=== PATIENT | female | born 1965 | race Caucasian/White ===

== ENCOUNTER 2017-01-07 11:18 | Emergency (ER) | payer OTHER ==
[2017-01-07 12:30] LABS: Urine Bilirubin Negative (Negative); Urine Glucose Negative (Negative); Urine Nitrite Negative (Negative)
[2017-01-07 12:56] LABS: Benzodiazepine Urine Screen Presumptive Positive (None Detect)
[2017-01-07 12:58] LABS: Hematocrit 45 % (35-47); Hemoglobin 15.3 g/dl (12.0-16.0); Mean Corpuscular HGB Conc 34 g/dl (31-36); Mean Corpuscular Hemoglobin 30 pg (27-31); Mean Corpuscular Volume 90 fL (80-97); Mean Platelet Volume 9 um3 (7.4-10.4); Red Blood Count 5.07 10^6/ul (4.0-5.4); Red Cell Distribution Width 13 % (10.5-15)
[2017-01-07 13:12] LABS: ALT 93 U/L (7-52); AST 98 U/L (13-39); Albumin 4.9 g/dL (3.2-5.2); Alkaline Phosphatase 81 U/L (34-104); Anion Gap 9 mmol/L (2-11); BUN/Creatinine Ratio 26.2 (8-20); Blood Urea Nitrogen 17 mg/dL (6-24); CO2 Carbon Dioxide 25 mmol/L (22-32); Calcium 9.7 mg/dL (8.6-10.3); Chloride 103 mmol/L (101-111); EGFR African American 124.6 (>60); EGFR Non-African American 96.9 (>60); Globulin 2.7 g/dL (2-4); Glucose 98 mg/dL (70-100); Potassium 3.7 mmol/L (3.5-5.0); Sodium 137 mmol/L (133-145); Total Protein 7.6 g/dL (6.4-8.9)
[2017-01-07 13:49] LABS: Acetaminophen < 15 mcg/mL; Alcohol < 10 mg/dL (<10); Salicylate < 2.50 mg/dL (<30)
[2017-01-07 15:00] VITALS: BP 146/96
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
== END 2017-01-07 15:20 | disposition home or self-care (01) ==
LOC: ED 11:18
DX: F32.9 Major depressive disorder, single episode, unspecified (principal)
CPT/HCPCS: 36415; 80053; 80307; 80320; 80329; 81003; 84443; 85025; 99283; G0480

== ENCOUNTER 2018-05-04 09:25 | Emergency (ER) | payer OTHER ==
[2018-05-04 09:38] VITALS: BP 141/86
--- NOTE | 2018-05-04 10:22 | UC ---
Skin Complaint HPI - HPI Summary HPI Summary: 52 yo female presents with LEFT foot wound. She tells me that 2 weeks ago she had a cyst removed in the office of her PCP and stitches placed. She went back to have these removed 1 week ago and tells me that the RN in his office who took them out says that they "didn't look good". Since that time pt has been having opening of the wound and clear/yellow/brown drainage from this site. Yesterday developed some surrounding swelling and pain. She has been keeping the wound covered with a band-aid. Denies fever or chills. - History of Current Complaint Chief Complaint: UCLowerExtremity Time Seen by Provider: 05/04/18 10:21 Stated Complaint: L FOOT COMPLAINT Hx Obtained From: Patient Hx Last Menstrual Period: 2001 or Onset/Duration: Gradual Onset Onset Severity: Moderate Current Severity: Moderate Pain Intensity: 5 Pain Scale Used: 0-10 Numeric - Allergy/Home Medications Allergies/Adverse Reactions: Allergies Allergy/AdvReac Type Severity Reaction Status Date / Time diclofenac Allergy See Comment Verified 05/04/18 09:39 Home Medications: Home Medications Losartan/Hydrochlorothiazide [Losartan Potassium/Hydroc 100-25 mg] 1 tab PO 04/13 [History] amLODIPine TAB* [Norvasc 5 mg TAB*] 5 mg PO DAILY 05/04/18 [History Confirmed ] Review of Systems Constitutional: Negative Skin: Other - Wound left foot Respiratory: Negative Cardiovascular: Negative Neurovascular: Negative Musculoskeletal: Negative Neurological: Negative Psychological: Negative All Other Systems Reviewed And Are Negative: Yes PMH/Surg Hx/FS Hx/Imm Hx Endocrine History: Hypothyroidism Cardiovascular History: Hypertension GI/ History: Gastroesophageal Reflux Psychological History: Anxiety, Depression - Surgical History Surgical History: Yes Surgery Procedure, Year, and Place: Complete Hysterectomy 2001. thyroidectomy. bunion removal - Family History Known Family History: Positive: Hypertension, Diabetes Family History: FHx of [place] - Social History Occupation: Employed Full-time Lives: With Family Alcohol Use: Occasionally Alcohol Amount: twice a week Substance Use Type: None Smoking Status (MU): Heavy Every Day Tobacco Smoker Type: Cigarettes When Did the Patient Quit Smoking/Using Tobacco: 4 years - Immunization History Most Recent Influenza Vaccination: [id number] Most Recent Tetanus Shot: unknown Physical Exam - Summary Physical Exam Summary: GENERAL: NAD. WDWN. No pain distress. SKIN: Left foot: Dorsal-medial aspect of foot with 1.0cm surgical incision approx 3mm in depth. 2mm of width at rest with no active drainage/discharge. Mild TTP surrounding. No edema or erythema. No streaking, bleeding, or drainage. NECK: Supple. Nontender. No lymphadenopathy. CHEST: No accessory muscle use. Breathing comfortably and in no distress. CV: Pulses intact. Cap refill <2seconds NEURO: Alert. PSYCH: Age appropriate behavior. Triage Information Reviewed: Yes Vital Signs: Initial Vital Signs Temp 97.8 F 05/04/18 09:34 Pulse 96 05/04/18 09:34 Resp 18 05/04/18 09:34 BP 141/86 05/04/18 09:34 Pulse Ox 97 05/04/18 09:34 Vital Signs Reviewed: Yes Course/Dx - Course Course Of Treatment: Wound dehiscence left foot. Advised pt that this will require secondary wound closure with wound dressings over the next few weeks. Scant clear drainage was able to be expressed and a culture was obtained. Will place her on keflex to cover for an infectious process. Wound was bandaged with telfa. - Diagnoses Provider Diagnoses: Wound dehiscence left foot Discharge - Sign-Out/Discharge Documenting (check all that apply): Patient Departure All imaging exams completed and their final reports reviewed: No Studies - Discharge Plan Condition: Stable Disposition: HOME Prescriptions: Cephalexin CAP* [Keflex CAP*] 500 mg PO TID #21 cap Patient Education Materials: Wound Dehiscence (ED) Referrals: Richard Perez MD [Primary Care Provider] - Additional Instructions: If you develop a fever, shortness of breath, chest pain, new or worsening symptoms - please call your PCP or go to the ED. Your blood pressure was high at todays visit. Please see your primary provider within 4 weeks for recheck and re-evaluation. 1) Change the dressing on your foot daily until well healed - this will likely take 3-4 weeks to fully heal. If your wound does not improve - please follow up - Billing Disposition and Condition Condition: STABLE Disposition: Home
--- NOTE | 2018-05-06 19:54 | UC ---
- Progress Note Progress Note: normal elsa 1+ on cephalexin no change await sensitivity ljj 05/06/18 Discharge - Sign-Out/Discharge Documenting (check all that apply): Post-Discharge Follow Up All imaging exams completed and their final reports reviewed: No Studies - Discharge Plan Condition: Stable Disposition: HOME Prescriptions: Cephalexin CAP* [Keflex CAP*] 500 mg PO TID #21 cap Patient Education Materials: Wound Dehiscence (ED) Referrals: Richard Perez MD [Primary Care Provider] - Additional Instructions: If you develop a fever, shortness of breath, chest pain, new or worsening symptoms - please call your PCP or go to the ED. Your blood pressure was high at todays visit. Please see your primary provider within 4 weeks for recheck and re-evaluation. 1) Change the dressing on your foot daily until well healed - this will likely take 3-4 weeks to fully heal. If your wound does not improve - please follow up - Billing Disposition and Condition Condition: STABLE Disposition: Home
== END 2018-05-04 11:01 | disposition home or self-care (01) ==
LOC: UCEAST 09:25
DX: T81.30XA Disruption of wound, unspecified, initial encounter (principal); Z88.6 Allergy status to analgesic agent; I10 Essential (primary) hypertension; Z87.891 Personal history of nicotine dependence
CPT/HCPCS: 87070; 87205; 99212; G0463

== ENCOUNTER 2018-06-21 13:03 | Emergency (ER) | payer OTHER ==
--- NOTE | 2018-06-21 13:40 | UC ---
Respiratory Complaint HPI - HPI Summary HPI Summary: 52 yo female presents with cough, sneezing, and hoarse voice since yesterday. 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 She has not taken anything OTC for her symptoms. She is still smoking daily. She does feel short of breath intermittently. Denies fever, chills, sore throat, sinus symptoms, chest pain, abdominal pain, n/v. - History of Current Complaint Stated Complaint: SORE THROAT, SOB Time Seen by Provider: 06/21/18 13:40 Hx Obtained From: Patient Hx Last Menstrual Period: 2001 or Onset/Duration: Sudden Onset Severity Initially: Moderate Severity Currently: Moderate Pain Intensity: 8 Pain Scale Used: 0-10 Numeric Character: Cough: Nonproductive - Allergies/Home Medications Allergies/Adverse Reactions: Allergies Allergy/AdvReac Type Severity Reaction Status Date / Time codeine Allergy Intermediate jitters Verified 06/21/18 13:44 diclofenac Allergy See Comment Verified 06/21/18 13:44 Home Medications: Home Medications Atorvastatin* [Lipitor*] 20 mg PO 1700 06/21/18 [History Confirmed 06/21/18] Omeprazole CAP* [Prilosec CAP* 20 MG] 20 mg PO DAILY 06/21/18 [History Confirmed 06/21/18] Prochlorperazine TAB* [Compazine Tab*] 10 mg PO DAILY WITH MEAL 06/21/18 [ History Confirmed 06/21/18] SUMAtriptan succinate [Imitrex] 100 mg PO DAILY WITH MEAL 06/21/18 [History Confirmed 06/21/18] PMH/Surg Hx/FS Hx/Imm Hx Endocrine History: Hypothyroidism, Dyslipidemia Cardiovascular History: Hypertension GI/ History: Gastroesophageal Reflux Neurological History: Migraine - Surgical History Surgical History: Yes Surgery Procedure, Year, and Place: Complete Hysterectomy 2001. thyroidectomy. bunion removal - Family History Known Family History: Positive: Hypertension, Diabetes Family History: FHx of [place] - Social History Occupation: Employed Full-time Lives: With Family Alcohol Use: Occasionally Alcohol Amount: twice a week Substance Use Type: None Smoking Status (MU): Heavy Every Day Tobacco Smoker Type: Cigarettes When Did the Patient Quit Smoking/Using Tobacco: 4 years - Immunization History Most Recent Influenza Vaccination: [id number] Most Recent Tetanus Shot: unknown Review of Systems All Other Systems Reviewed And Are Negative: Yes Constitutional: Positive: Negative Skin: Positive: Negative Eyes: Positive: Negative ENT: Positive: Other - Hoarseness Respiratory: Positive: Cough Cardiovascular: Positive: Negative Gastrointestinal: Positive: Negative Genitourinary: Positive: Negative Neurovascular: Positive: Negative Neurological: Positive: Negative Psychological: Positive: Negative Physical Exam - Summary Physical Exam Summary: GENERAL: NAD. WDWN. No pain distress. SKIN: No rashes, sores, lesions, or open wounds. HEENT: Head: AT/NC Eyes: Conjunctiva clear without inflammation or discharge. Ears: Hearing grossly normal. TMs intact, no bulging, erythema, or edema. Nose: Nasal mucosa pink and moist. NTTP maxillary and frontal sinus. Throat: Posterior oropharynx without exudates, erythema, or tonsillar enlargement. Uvula midline. NECK: Supple. Nontender. No lymphadenopathy. CHEST: Mild wheezing throughout. No r/r. No accessory muscle use. Breathing comfortably and in no distress. CV: RRR. Without m/r/g. Pulses intact. Cap refill <2seconds NEURO: Alert. PSYCH: Age appropriate behavior. Triage Information Reviewed: Yes Vital Signs: Vital Signs: Temp Pulse Resp BP Pulse Ox 97.7 F 96 18 142/97 97 06/21/18 13:40 06/21/18 13:40 06/21/18 13:40 06/21/18 13:40 06/21/18 13:40 Vital Signs Reviewed: Yes Respiratory Course/Dx - Course Course Of Treatment: CXR: IMPRESSION: NO EVIDENCE FOR ACTIVE CARDIOPULMONARY DISEASE. S/P duoneb: pt reports improvement and easier to get a good breath. Lung sounds improved with scant wheezing heard. Suspect bronchitis. She was given an albuterol inhaler in the clinic and will rx for prednisone and tessalon. Advised to cut back smoking. - Differential Dx/Diagnosis Provider Diagnosis: Bronchitis Discharge - Sign-Out/Discharge Documenting (check all that apply): Patient Departure All imaging exams completed and their final reports reviewed: Yes - Discharge Plan Condition: Stable Disposition: HOME Prescriptions: Benzonatate CAP* [Tessalon 100 MG CAP*] 100 mg PO TID PRN #21 cap PRN Reason: Cough predniSONE TAB* [Deltasone 20 MG TAB*] 60 mg PO DAILY #18 tab Patient Education Materials: Acute Bronchitis (ED) Referrals: Richard Perez MD [Primary Care Provider] - Additional Instructions: If you develop a fever, shortness of breath, chest pain, new or worsening symptoms - please call your PCP or go to the ED. Your blood pressure was high at todays visit. Please see your primary provider within 4 weeks for recheck and re-evaluation. - Billing Disposition and Condition Condition: STABLE Disposition: Home
[2018-06-21 13:44] VITALS: BP 142/97
[2018-06-21] MEDS ORDERED: Albuterol/Ipratropium NEB.SOL* Albuterol 2.5 MG/Ipratropium 0.5 MG 3 ML INH ONE (14:01)
[2018-06-21] MEDS ORDERED: Albuterol HFA INHALER* 8 gm MDI INH ONE (14:36)
== END 2018-06-21 14:50 | disposition home or self-care (01) ==
LOC: UCEAST 13:03
DX: J40 Bronchitis, not specified as acute or chronic (principal); Z88.5 Allergy status to narcotic agent; Z88.6 Allergy status to analgesic agent
CPT/HCPCS: 71046; 99213; A9270-GY; G0463

== ENCOUNTER 2018-11-13 13:15 | Emergency (ER) | payer SELFPAY ==
[2018-11-13 13:24] VITALS: BP 128/93
--- NOTE | 2018-11-13 13:30 | UC ---
General HPI - HPI Summary HPI Summary: Pleasant 52 yo female c/o progressively worse cough, wheezing, short of breath last 5 days. Seen by PCP at [place] on (today is Sat), influenza test performed and started tamiflu. She later was advised that infl a/b neg, has taken 3 days tamiflu. Does not have nebulizer at home. Very tired. + subj fever and chills. Appetite decreased, but without n/v/d. no rash. + smoker but has not been able to smoke d/t cough / sob. Recently dx'd diabetes, does not take medication / insulin. No vis / aud changes. + ear fullness. - History of Current Complaint Chief Complaint: UCRespiratory Stated Complaint: FLU SYMPTOMS Time Seen by Provider: 11/13/18 13:28 Hx Obtained From: Patient Hx Last Menstrual Period: 2001 or Pain Intensity: 6 - Allergy/Home Medications Allergies/Adverse Reactions: Allergies Allergy/AdvReac Type Severity Reaction Status Date / Time codeine Allergy Intermediate jitters Verified 11/13/18 13:24 diclofenac Allergy See Comment Verified 11/13/18 13:24 PMH/Surg Hx/FS Hx/Imm Hx Previously Healthy: No - see below - Surgical History Surgical History: Yes Surgery Procedure, Year, and Place: Complete Hysterectomy 2001. thyroidectomy. bunion removal - Family History Known Family History: Positive: None, Hypertension, Diabetes Family History: FHx of [place] - Social History Alcohol Use: Occasionally Alcohol Amount: twice a week Substance Use Type: None Smoking Status (MU): Heavy Every Day Tobacco Smoker Type: Cigarettes When Did the Patient Quit Smoking/Using Tobacco: 4 years - Immunization History Most Recent Influenza Vaccination: 8618-6190 Most Recent Tetanus Shot: unknown Review of Systems All Other Systems Reviewed And Are Negative: Yes Constitutional: Positive: Other - see hpi Skin: Positive: Other - see hpi Eyes: Positive: Negative ENT: Positive: Nasal Discharge, Sinus Congestion, Other - see hpi Respiratory: Positive: Cough, Other - see hpi Cardiovascular: Positive: Other - see hpi Gastrointestinal: Positive: Other - see hpi Genitourinary: Positive: Other - see hpi Motor: Positive: Other - see hpi Neurovascular: Positive: Other - see hpi Musculoskeletal: Positive: Other: - see hpi Neurological: Positive: Negative Psychological: Positive: Negative Is Patient Immunocompromised?: No Physical Exam Triage Information Reviewed: Yes Appearance: Well-Nourished - sitting up, conversing Vital Signs: Initial Vital Signs Temp 98.6 F 11/13/18 13:20 Pulse 92 11/13/18 13:20 Resp 18 11/13/18 13:20 BP 128/93 11/13/18 13:20 Pulse Ox 97 11/13/18 13:20 Vital Signs Reviewed: Yes Eye Exam: Normal - eyes watery, not red ENT: Positive: Pharyngeal erythema - post pharynx + red, no sores / exudates. C /w cough. trachea midline. no stridor., Other - cerumen impaction L ear. R tm pacheco, eac [place] Neck exam: Normal Neck: Positive: Supple Respiratory Exam: Other - bilat rhonchi scattered + scattered insp / exp wheeze no stridor Respiratory: Positive: No respiratory distress, No accessory muscle use Cardiovascular Exam: Normal Cardiovascular: Positive: RRR, Brisk Capillary Refill Abdominal Exam: Normal Abdomen Description: Positive: Nontender Musculoskeletal Exam: Other - mild bilat hemosiderosis, mild edema, distal warm to touch. Neurological Exam: Normal - grossly nonfocal Psychological Exam: Normal - conversing easily and appropriately Course/Dx - Course Course Of Treatment: Blood glucose 110mg / dl. Aware to check blood glucose while taking prednisone. Reviewed bp, and need for recheck within 4 weeks. better s/p neb. she does not have access to a nebulizer but will ask her doctor for a script or look for one. Reviewed cxr with pt. Reviewed coa / tx plan. And need for f/u if worse or no better. Questions as posed answered to the best of my ability. - Diagnoses Provider Diagnosis: Bronchitis, Wheezing Discharge - Sign-Out/Discharge Documenting (check all that apply): Patient Departure All imaging exams completed and their final reports reviewed: Yes - Discharge Plan Condition: Critical Disposition: HOME Prescriptions: Albuterol 2.5MG/3ML (0.083%)* [Ventolin 2.5 MG/3 ML NEB.ANIKA*] 2.5 mg INH Q6H # 25 packet Albuterol HFA INHALER* [Ventolin HFA Inhaler*] 1 - 2 puff INH Q4H PRN #1 mdi PRN Reason: Wheezing Amoxicillin/Clavulanate TAB* [Augmentin TAB 875*] 875 mg PO BID #20 tab Benzonatate CAP* [Tessalon 100 MG CAP*] 100 mg PO TID PRN #30 cap PRN Reason: Cough predniSONE TAB* [Deltasone 10 MG TAB*] 10 mg PO DAILY #20 tab Patient Education Materials: Cerumen Impaction (ED), Acute Bronchitis (ED), COPD (Chronic Obstructive Pulmonary Disease) (ED), Bronchospasm (ED) Forms: *Work Release Referrals: Richard Perez MD [Primary Care Provider] - Additional Instructions: Follow up with your primary care physician early this week for respiratory recheck. Seek medical attention for worse or new problems. - Billing Disposition and Condition Condition: CRITICAL Disposition: Home
[2018-11-13] MEDS ORDERED: predniSONE TAB* 20 MG PO ONE (13:46)
[2018-11-13] MEDS ORDERED: Albuterol/Ipratropium NEB.SOL* Albuterol 2.5 MG/Ipratropium 0.5 MG 3 ML INH ONE (13:46)
== END 2018-11-13 15:25 | disposition home or self-care (01) ==
LOC: UCEAST 13:15
DX: J40 Bronchitis, not specified as acute or chronic (principal); R06.2 Wheezing; H61.22 Impacted cerumen, left ear; E11.9 Type 2 diabetes mellitus without complications; Z88.5 Allergy status to narcotic agent; Z88.8 Allergy status to other drugs, medicaments and biological substances; F17.210 Nicotine dependence, cigarettes, uncomplicated
CPT/HCPCS: 71046; 99213; A9270-GY; G0463; J7512

== ENCOUNTER 2019-02-25 12:47 | Emergency (ER) | payer OTHER ==
[2019-02-25 13:05] VITALS: BP 171/85
--- NOTE | 2019-02-25 13:20 | UC ---
Skin Complaint HPI - HPI Summary HPI Summary: She noticed an area of redness and mild pain 3 days ago on her left hip. Today it is more painful. She is diabetic and has a wound on her toe that's been healing for a long time. - History of Current Complaint Chief Complaint: UCSkin Time Seen by Provider: 02/25/19 13:02 Stated Complaint: SKIN CONCERN Hx Obtained From: Patient Hx Last Menstrual Period: 2001 or Onset/Duration: Gradual Onset, Lasting Days Skin Exposure Onset/Duration: Days Ago Timing: Constant Onset Severity: Mild Current Severity: Moderate Pain Intensity: 5 Location: Discrete - Left hip Aggravating Factor(s): Clothing Alleviating Factor(s): Nothing Associated Signs & Symptoms: Positive: Negative - Allergy/Home Medications Allergies/Adverse Reactions: Allergies Allergy/AdvReac Type Severity Reaction Status Date / Time diclofenac Allergy See Comment Verified 11/13/18 13:24 codeine AdvReac Intermediate jitters Verified 02/25/19 13:06 Home Medications: Home Medications Ascorbic Acid TAB* [Vitamin C TAB*] 500 mg PO DAILY 02/25/19 [History Confirmed 02/25/19] L.acidoph,Paracasei, B.lactis [Probiotic] 1 each PO DAILY 02/25/19 [History Confirmed 02/25/19] Multivitamin [Multivitamins] 1 cap PO DAILY 02/25/19 [History Confirmed 02/25/19 ] Pioglitazon/Metform 15/500(NF) [ActosPlus Met (15/500)] 1 tab PO DAILY 02/25/19 [History Confirmed 02/25/19] PMH/Surg Hx/FS Hx/Imm Hx Endocrine History: Diabetes Cardiovascular History: Hypertension - Surgical History Surgical History: Yes Surgery Procedure, Year, and Place: Complete Hysterectomy 2001. thyroidectomy. bunion removal - Family History Known Family History: Positive: None, Hypertension, Diabetes Family History: FHx of [place] - Social History Alcohol Use: Weekly Alcohol Amount: twice a week Substance Use Type: None Smoking Status (MU): Heavy Every Day Tobacco Smoker Type: Cigarettes Amount Used/How Often: 1 ppd Length of Time of Smoking/Using Tobacco: since age 20 When Did the Patient Quit Smoking/Using Tobacco: 4 years - Immunization History Most Recent Influenza Vaccination: 9822-5583 Most Recent Tetanus Shot: unknown Review of Systems All Other Systems Reviewed And Are Negative: Yes Constitutional: Positive: Negative Skin: Positive: Rash ENT: Positive: Negative Respiratory: Positive: Negative Motor: Positive: Negative Neurovascular: Positive: Negative Musculoskeletal: Positive: Negative Neurological: Positive: Negative Physical Exam - Summary Physical Exam Summary: She is nontoxic in appearance with borderline tachycardia. Triage Information Reviewed: Yes Appearance: Well-Appearing Vital Signs: Initial Vital Signs Temp 99.2 F 02/25/19 12:59 Pulse 107 02/25/19 12:59 Resp 17 02/25/19 12:59 BP 171/85 02/25/19 12:59 Pulse Ox 98 02/25/19 12:59 Vital Signs Reviewed: Yes ENT: Positive: Normal ENT inspection Respiratory Exam: Normal Cardiovascular Exam: Normal Skin Exam: Other - She has an approximately 12 x 6 cm area on her left hip which is erythematous and mildly tender. There is a hint of central clearing. Course/Dx - Course Course Of Treatment: This may merely be a cellulitis but I do have a concern for Lyme. She sleeps with her dogs but has not noticed a tick. The dogs are treated for ticks. I'm going to treat her with doxycycline which should cover either problem and go 21 days because it's possible that this is live and also she has slow healing issues because of her diabetes. - Diagnoses Provider Diagnosis: Cellulitis Discharge - Sign-Out/Discharge Documenting (check all that apply): Patient Departure All imaging exams completed and their final reports reviewed: No Studies - Discharge Plan Condition: Stable Disposition: HOME Patient Education Materials: Cellulitis (ED) Referrals: Richard Perez MD [Primary Care Provider] - Additional Instructions: Your blood pressure was mildly elevated here in the [facility]. I recommended you follow-up with your PCP for further evaluation. - Billing Disposition and Condition Condition: STABLE Disposition: Home
== END 2019-02-25 13:35 | disposition home or self-care (01) ==
LOC: UCCORT 12:47
DX: L03.116 Cellulitis of left lower limb (principal); E11.9 Type 2 diabetes mellitus without complications; Z79.84 Long term (current) use of oral hypoglycemic drugs; I10 Essential (primary) hypertension; F17.210 Nicotine dependence, cigarettes, uncomplicated
CPT/HCPCS: 99212; G0463

== ENCOUNTER 2019-02-26 12:09 | Emergency (ER) | payer OTHER ==
[2019-02-26 12:27] VITALS: BP 141/84
--- NOTE | 2019-02-26 13:19 | UC ---
FLU HPI - HPI Summary HPI Summary: 53 year old female with h/o DM II present with rash on Left hip. Was seen at [place] yesterday, treated with doxycycline for possible cellulitis/ lyme disease. Patient states increased in rash with fever to AM to 101. Headache- mild, diffuse. No GI symptoms. pain in hip increased- now feels deep inside hip joint. Increased pain with touch. - History of Current Complaint Chief Complaint: UCLowerExtremity Stated Complaint: LT HIP PAIN/REDNESS Time Seen by Provider: 02/26/19 12:57 Hx Obtained From: Patient Hx Last Menstrual Period: 2001 or ?: No Onset/Duration: Sudden Onset, Lasting Days Severity Currently: Mild Severity Initially: Severe Pain Intensity: 8 Pain Scale Used: 0-10 Numeric Associated Signs & Symptoms: Positive: Fever - 101, T Max - 101, Myalgia, Headache. Negative: Sore Throat, Nasal Congestion - Allergy/Home Medications Allergies/Adverse Reactions: Allergies Allergy/AdvReac Type Severity Reaction Status Date / Time diclofenac Allergy See Comment Verified 11/13/18 13:24 codeine AdvReac Intermediate jitters Verified 02/25/19 13:06 PMH/Surg Hx/FS Hx/Imm Hx Previously Healthy: Yes Endocrine History: Diabetes - Surgical History Surgical History: Yes Surgery Procedure, Year, and Place: Complete Hysterectomy 2001. thyroidectomy. bunion removal bladder susupenion - Family History Known Family History: Positive: None, Hypertension, Diabetes, Non-Contributory Family History: FHx of [place] - Social History Alcohol Use: Weekly Alcohol Amount: twice a week Substance Use Type: None Smoking Status (MU): Heavy Every Day Tobacco Smoker Type: Cigarettes Amount Used/How Often: 1 ppd Length of Time of Smoking/Using Tobacco: since age 20 When Did the Patient Quit Smoking/Using Tobacco: 4 years - Immunization History Most Recent Influenza Vaccination: [id number] Most Recent Tetanus Shot: unknown Review of Systems All Other Systems Reviewed And Are Negative: Yes Constitutional: Positive: Fever, Chills, Fatigue Skin: Positive: Rash Musculoskeletal: Positive: Arthralgia, Decreased ROM, Myalgia Is Patient Immunocompromised?: No Physical Exam Triage Information Reviewed: Yes Appearance: Well-Appearing, No Pain Distress, Well-Nourished Vital Signs: Initial Vital Signs Temp 98.8 F 02/26/19 12:19 Pulse 107 02/26/19 12:19 Resp 20 02/26/19 12:19 BP 141/84 02/26/19 12:19 Pulse Ox 98 02/26/19 12:19 Vital Signs Reviewed: Yes Eyes: Positive: Conjunctiva Clear ENT: Positive: Hearing grossly normal Musculoskeletal: Positive: Strength Intact, ROM Intact - TTP with hip flexion greater than 90 degrees, ROM 0-110., Other: - no pain with log roll, PT 2+, neg homans, TTP over inguinal region left side, + LAD, mobile, tender, ~ 1cm. no pain with abd/ add. Neurological: Positive: Other: - SITLT distal to Left hip Psychological Exam: Normal Skin: Positive: Other - over lateral left hip, increased erythema from pictures shown from yesterday, TTP , blanching, no drainage/ opening noted. no central clearing, not raised. Flu Course/Dx - Course Course Of Treatment: Possible septic joint- patient was advised to go to ER due to increasing symptoms, hip pain for further evaluation. - Differential Dx/Diagnosis Provider Diagnosis: Cellulitis Discharge - Sign-Out/Discharge Documenting (check all that apply): Patient Departure All imaging exams completed and their final reports reviewed: No Studies - Discharge Plan Condition: Good Disposition: HOME-RECOMMEND TO ED Patient Education Materials: Cellulitis (ED) Referrals: Richard Perez MD [Primary Care Provider] - Additional Instructions: - Please go to ER for further evaluation due to increasing symptoms and hip pain - Billing Disposition and Condition Condition: GOOD Disposition: Home-Recommend to ED - Attestation Statements Provider Attestation: Per institutional requirements, I have reviewed the chart, however, I was not consulted specifically or made aware of this patient by the midlevel provider. I did not personally evaluate, interact with , or disposition this patient.
== END 2019-02-26 13:28 | disposition home health service (06) ==
LOC: UCEAST 12:09
DX: L03.116 Cellulitis of left lower limb (principal); E11.9 Type 2 diabetes mellitus without complications; F17.210 Nicotine dependence, cigarettes, uncomplicated; Z88.5 Allergy status to narcotic agent
CPT/HCPCS: 99212; G0463

== ENCOUNTER 2019-05-30 07:14 | Emergency (ER) | payer OTHER ==
--- OUTSIDE RECORDS SUMMARY | 2019-05-30 07:25 | XMS REPORT | Continuity of Care Document ---
:1965 External Reference #:[id number] Author Name Vikas Benoit M.D. 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 Onset: 02/07/2015 Social History Type Date Description Comments Sex Unknown Tobacco Use Start: Unknown Light tobacco smoker (10 or fewer cigarettes/day) ETOH Use Occasionally consumes 2 glasses of wine alcohol per week Tobacco Use Start: Unknown Patient is a current smoker, smokes every day Recreational Drug Use Denies Drug Use Tobacco Use Start: Unknown Light tobacco smoker (10 or fewer cigarettes/day) Smoking Status Reviewed: 04/11/19 Light tobacco smoker (10 or fewer cigarettes/day) Exercise Type/Frequency Exercises regularly walk daily Allergies, Adverse Reactions, Alerts Active Allergies Reaction Severity Comments Date Codeine high doses, hyper/jittery 02/07/2015 Diclofenac indigestion 08/31/2018 Benadryl hallucination 04/11/2019 Medications Active Medications SIG Qnty Indications Ordering Provider Date Pioglitazone HCL take 15mg once 90tabs E11.65 Patric Akers MD 08/31/2018 15mg daily Tablets Levothyroxine Sodium 1 by mouth Unknown 88mcg every day Tablets Omeprazole 1 by mouth once Unknown 40mg Capsules DR daily Amlodipine Besylate 1 by mouth Unknown 5mg every day Tablets Atorvastatin Calcium 1 by mouth Unknown 20mg every day Tablets Losartan 1 by mouth Unknown Potassium/Hydrochloroth every day iazide 100-25mg Tablets Multi-Vitamin Daily 1 by mouth Unknown every day Tablets Probiotic 1 by mouth Unknown Capsules every day Venlafaxine HCL ER 1 by mouth Unknown 150mg every day Caps ER 24HR Vitamin C 1 by mouth Unknown 500mg Tablets every day Medications Administered in Office Medication SIG Qnty Indications Ordering Provider Date Injection Onabotulinumtoxin A, 1 Phylicia Coelho NP 05/07/2015 Unit Injection Immunizations Description No Information Available Vital Signs Date Vital Result Comment 04/11/2019 2:37pm Height 63 inches 5'3" Weight 164.00 lb Heart Rate 84 /min BP Systolic Sitting 120 mmHg BP Diastolic Sitting 82 mmHg Respiratory Rate 14 /min Body Temperature 97.0 F BMI (Body Mass Index) 29.0 kg/m2 11/30/2018 8:37am Height 63 inches 5'3" Weight 176.00 lb Heart Rate 94 /min BP Systolic 117 mmHg BP Diastolic 85 mmHg BMI (Body Mass Index) 31.2 kg/m2 Results Test Date Facility Test Result H/L Range Note Laboratory test 11/30/2018 [facility] TSH 0.23 mcIU/mL Low 0.34-5.[address] ([place] [address] Stim Horm) [phone] Free T4 (Free Thyroxine) 1.05 ng/dL Normal 0.61-1.12 Comp Metabolic 11/30/2018 [facility] Sodium 141 mmol/L Normal 135-[address] [place] [address] [phone] Potassium 4.0 mmol/L Normal 3.5-5.0 Chloride 106 mmol/L Normal 101-111 Co2 Carbon Dioxide 26 mmol/L Normal 22-32 Anion Gap 9 mmol/L Normal 2-11 Glucose 121 mg/dL High 70-100 Blood Urea Nitrogen 12 mg/dL Normal 6-24 Creatinine 0.60 mg/dL Normal 0.51-0.95 BUN/Creatinine Ratio 20.0 Normal 8-20 Calcium 9.4 mg/dL Normal 8.6-10.3 Total Protein 7.1 g/dL Normal 6.4-8.9 Albumin 4.8 g/dL Normal 3.2-5.2 Globulin 2.3 g/dL Normal 2-4 Albumin/Globulin Ratio 2.1 Normal 1-3 Total Bilirubin 0.50 mg/dL Normal 0.2-1.0 Alkaline Phosphatase 71 U/L Normal 34-104 Alt 35 U/L Normal 7-52 Ast 23 U/L Normal 13-39 Egfr Non- 105.4 >60 Egfr 127.5 >60 1 Laboratory test 11/30/2018 [facility] Lipase 14 U/L Normal 11.0-82.[address] [place] [address] [phone] Hemoglobin A1c (Glyco HGB) 6.5 % High 4.0-5.6 2 Insulin Level 19.8 mcIU/mL High 2.0-16.0 1 Because ethnic data is not always readily available, this report includes an eGFR for both -Americans and non- Americans. The National Kidney Disease Education Program (NKDEP) does not endorse the use of the MDRD equation for patients that are not between the ages of 18 and 70, are , have extremes of body size, muscle mass, or nutritional status, or are non- or non-. According to the National Kidney Foundation, irrespective of diagnosis, the stage of the disease is based on the level of kidney function: Stage Description GFR(mL/min/1.73 m(2)) 1 Kidney damage with normal or decreased GFR 90 2 Kidney damage with mild decrease in GFR 60-89 3 Moderate decrease in GFR 30-59 4 Severe decrease in GFR 15-29 5 Kidney failure <15 (or dialysis) 2 Therapeutic target for the treatment of diabetes mellitus patients is <7% HBA1C, and in selective patients <6.0%. Please refer to [place] [employer] diabetic care guidelines for further information. Procedures Description No Information Available Medical Devices Description No Information Available Encounters Type Date Location Provider Dx Diagnosis Office Visit 11/30/2018 [facility] Patric Akers MD Z79.84 long term (current) 8:40a [facility] use of oral hypoglycemic drugs E11.65 Type 2 diabetes mellitus with hyperglycemia E88.81 Metabolic syndrome E78.5 Hyperlipidemia, unspecified E89.0 Postprocedural hypothyroidism Assessments Date Code Description Provider 11/30/2018 Z79.84 long term (current) use of oral hypoglycemic drugs Patric Akers MD 11/30/2018 E11.65 Type 2 diabetes mellitus with hyperglycemia Patric Akers MD 11/30/2018 E88.81 Metabolic syndrome Patric Akers MD 11/30/2018 E78.5 Hyperlipidemia, unspecified Patric Akers MD 11/30/2018 E89.0 Postprocedural hypothyroidism Patric Akers MD Plan of Treatment Future Appointment(s):05/31/2019 8:40 am - Patric Akers MD at [facility] Functional Status Description No Information Available Mental Status Description No Information Available Referrals Description No Information Available
--- OUTSIDE RECORDS SUMMARY | 2019-05-30 07:25 | XMS REPORT | Continuity of Care Document ---
:1965 External Reference #:[id number] Author Name Mehreen Anderson MD (transmitted by agent of provider Mary Nolan) Address [address] [place] [address] Care Team Providers Name Role Phone Mehreen Anderson MD - Internal Medicine Care Team Information Systems Accountant [phone] Problems Active Problems Provider Date Migraine without aura Clem Chauhan M.D. Onset: 02/07/2015 Type II diabetes mellitus uncontrolled Mehreen Anderson MD Onset: 05/19/2019 Hyperlipidemia Mehreen Anderson MD Onset: 05/19/2019 Lipodystrophy Mehreen Anderson MD Onset: 05/19/2019 Essential hypertension Mehreen Anderson MD Onset: 05/19/2019 Social History Type Date Description Comments Sex Unknown Tobacco Use Start: Unknown Light tobacco smoker (10 or fewer cigarettes/day) ETOH Use Occasionally consumes 2 glasses of wine alcohol per week Tobacco Use Start: Unknown Patient is a current smoker, smokes every day Recreational Drug Use Denies Drug Use Tobacco Use Start: Unknown Light tobacco smoker (10 or fewer cigarettes/day) Smoking Status Reviewed: 05/19/19 Light tobacco smoker (10 or fewer cigarettes/day) Exercise Type/Frequency Exercises regularly walk daily Allergies, Adverse Reactions, Alerts Active Allergies Reaction Severity Comments Date Codeine high doses, hyper/jittery 02/07/2015 Diclofenac indigestion 08/31/2018 Benadryl hallucination 04/11/2019 Medications Active Medications SIG Qnty Indications Ordering Date Provider Omeprazole 1 by mouth 15caps K21.9 Mehreen Anderson MD 05/19/[address] every other day Pioglitazone HCL take 15mg 90tabs E11.65 Patric Akers MD 08/31/2018 15mg Tablets once daily Levothyroxine Sodium 1 by mouth Unknown 88mcg Tablets every day Omeprazole 1 by mouth Unknown 40mg Capsules DR once daily Amlodipine Besylate 1 by mouth Unknown 5mg Tablets every day Atorvastatin Calcium 1 by mouth Unknown 20mg Tablets every day Multi-Vitamin Daily 1 by mouth Unknown Tablets every day Probiotic 1 by mouth Unknown Capsules every day Venlafaxine HCL ER 1 by mouth Unknown 150mg Caps ER every day 24HR Vitamin C 1 by mouth Unknown 500mg Tablets every day Hydrochlorothiazide 1 by mouth Unknown 25mg Tablets every day Losartan Potassium 1 by mouth Unknown 100mg Tablets every day Medications Administered in Office Medication SIG Qnty Indications Ordering Provider Date Injection Onabotulinumtoxin A, 1 Phylicia Coelho NP 05/07/2015 Unit Injection Immunizations Description No Information Available Vital Signs Date Vital Result Comment 05/19/2019 1:27pm Height 63 inches 5'3" Weight 163.00 lb Heart Rate 98 /min BP Systolic Sitting 122 mmHg BP Diastolic Sitting 81 mmHg Body Temperature 97.5 F O2 % BldC Oximetry 93 % BMI (Body Mass Index) 28.9 kg/m2 04/11/2019 2:37pm Height 63 inches 5'3" Weight 164.00 lb Heart Rate 84 /min BP Systolic Sitting 120 mmHg BP Diastolic Sitting 82 mmHg Respiratory Rate 14 /min Body Temperature 97.0 F BMI (Body Mass Index) 29.0 kg/m2 Results Test Date Facility Test Result H/L Range Note Laboratory test 11/30/2018 [facility] TSH 0.23 mcIU/mL Low 0.34-5.[address] ([place] [address] Stim Horm) [phone] Free T4 (Free Thyroxine) 1.05 ng/dL Normal 0.61-1.12 Comp Metabolic 11/30/2018 [facility] Sodium 141 mmol/L Normal 135-[address] [place] [address] [phone] Potassium 4.0 mmol/L Normal 3.5-5.0 Chloride 106 [...] Egfr 127.5 >60 1 Laboratory test 11/30/2018 [facility] Lipase 14 U/L Normal 11.0-82.0 [address] [place] [address] [phone] Hemoglobin A1c (Glyco HGB) 6.5 % High [...] in selective patients <6.0%. Please refer to [place] [employer] diabetic care guidelines for further information. Procedures Description No Information Available Medical Devices Description No Information Available Encounters Type Date Location Provider Dx Diagnosis Office Visit 04/11/2019 [facility] For Vikas Brush Z86.19 Personal history 2:40p Infectious Kate Benoit. of other Diseases infectious and parasitic diseases R53.83 Other fatigue R51 Headache Office Visit 11/30/2018 [facility] Patric Akers Z79.84 residential 8:40a Endocrinology of (current) use of Kitchen Supervisor oral hypoglycemic drugs E11.65 Type 2 diabetes mellitus with hyperglycemia E88.81 Metabolic syndrome E78.5 Hyperlipidemia, unspecified E89.0 Postprocedural hypothyroidism Assessments Date Code Description Provider 05/19/2019 E03.9 Hypothyroidism, unspecified Mehreen Anderson MD 05/19/2019 E11.65 Type 2 diabetes mellitus with Mehreen Anderson MD hyperglycemia 05/19/2019 I10 Essential (primary) hypertension Mehreen Anderson MD 05/19/2019 E78.5 Hyperlipidemia, unspecified Mehreen Anderson MD 05/19/2019 F33.1 Major depressive disorder, recurrent, Mehreen Anderson MD moderate 05/19/2019 K21.9 Gastro-esophageal reflux disease without Mehreen Anderson MD esophagitis 05/19/2019 Z12.11 Encounter for screening for malignant Mehreen Anderson MD neoplasm of colon 05/19/2019 G43.709 Chronic migraine without aura, not Mehreen Anderson MD intractable, without status migrainosus 05/19/2019 M79.10 Myalgia, unspecified site Mehreen Anderson MD 04/11/2019 Z86.19 Personal history of other infectious and Vikas Benoit M.D. parasitic diseases 04/11/2019 R53.83 Other fatigue Vikas Benoit M.D. 04/11/2019 R51 Headache Vikas Benoit M.D. 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 Akers MD hypoglycemic drugs 11/30/2018 E11.65 Type 2 diabetes mellitus with Patric Akers MD hyperglycemia 11/30/2018 E88.81 Metabolic syndrome Patric Akers MD 11/30/2018 E78.5 Hyperlipidemia, unspecified Patric Akers MD 11/30/2018 E89.0 Postprocedural hypothyroidism Patric Akers MD Plan of Treatment Future Appointment(s):06/02/2019 4:00 pm - [facility] - Mehreen Anderson MDE03.9 Hypothyroidism, unspecifiedComments:Stay on the same dose of levothyroxine ( 88mch levothyroxine 5 days a week) ; TSH was normal within the past yearE11.65 Type 2 diabetes mellitus with hyperglycemiaComments:Dr. Akers manages [id number] controlledLost 20 lbsReferral:Arnold Prasad MD, [id number] Essential (primary) hypertensionComments:Your blood pressure is fine. Continue the same medication Losartan 100mg/ HCTZ / amlodipine 5mgE78.5 Hyperlipidemia, nnvvlcbgpugM40.1 Major depressive disorder, recurrent, moderateComments: Continue effexorFollow up:F/U 2-3 ygahyP48.9 Gastro-esophageal reflux disease without esophagitisNew Medication:Omeprazole 20 mg - 1 by mouth every other dayReferral:Jennifer Foy M.D., [facility] GroupFollow up:[facility] ikpvdwkC39.11 Encounter for screening for malignant neoplasm of colonComments: 2019; 3 year adyazrG16.709 Chronic migraine without aura, not intractable, without status migrainosusComments:Try Excedrin migraine next timeM79.10 Myalgia , unspecified site Functional Status Description No Information Available Mental Status Description No Information Available Referrals Refer to Reason for Referral Status Appt Date Arnold Prasad MD Created [address] [place], [place] [address] [phone] Jennifer Foy M.D. Created [address] [place] [address] [phone]
[2019-05-30 07:31] VITALS: BP 146/81
[2019-05-30] MEDS ORDERED: Ketorolac *IM* INJ* 60 MG/2 ML VIAL IM ONE (08:02)
--- NOTE | 2019-05-30 08:02 | UC ---
Back Pain HPI - HPI Summary HPI Summary: 53 yo woman with hx of renal stones about 5 years ago, passed spontaneously, with sudden onset of left flank pain about 14 hours ago. Her sleep was disrupted last night by pain, but she has not taken any analgesics. Mild dysuria came on at the same time, without gross hematuria. No hx of injury. Pain is in the low back area and radiates to the left buttock, without leg weakness or paresthesias. - History of Current Complaint Chief Complaint: UCBackPain Stated Complaint: BACK PAIN Time Seen by Provider: 05/30/19 07:53 Hx Obtained From: Patient Hx Last Menstrual Period: 2001 or Onset/Duration: Sudden Onset, Lasting Hours Timing: Constant Severity Initially: Moderate Severity Currently: Moderate Pain Intensity: 8 Back Pain: Is Discrete @ - left flank, Radiates To - left buttock and posterior thigh. Character: Aching Aggravating Factor(s): Movement Alleviating Factor(s): Position - worse with lying. Associated Signs And Symptoms: Positive: Flank Pain. Negative: Redness, Fever, Weakness, Numbness, Tingling, Bladder Incontinence - Risk Factors AAA Risk Factors: Smoking, Hypertension TAD Risk Factors: Smoking, Hypertension Cauda Equina Risk Factors: Negative Epidural Abscess Risk Factors: Negative - Allergies/Home Medications Allergies/Adverse Reactions: Allergies Allergy/AdvReac Type Severity Reaction Status Date / Time diclofenac Allergy See Comment Verified 05/30/19 07:32 diphenhydramine Allergy Hallucinati Verified 05/30/19 07:32 [From Benadryl] ons codeine AdvReac Intermediate jitters Verified 05/30/19 07:32 Home Medications: Home Medications Hydrochlorothiazide TAB* [Hydrodiuril TAB*] 25 mg PO DAILY 05/30/19 [History Confirmed 05/30/19] Losartan Potassium 100 mg PO DAILY 05/30/19 [History Confirmed 05/30/19] PMH/Surg Hx/FS Hx/Imm Hx Endocrine History: Diabetes, Hypothyroidism Cardiovascular History: Hypertension GI/ History: Other - hepatomegaly with liver function changes in the past. Psychological History: Anxiety - maintains venlafaxine due to this. - Surgical History Surgical History: Yes Surgery Procedure, Year, and Place: Complete Hysterectomy 2001. thyroidectomy. bunion removal. bladder suspenion - Family History Known Family History: Positive: Hypertension, Diabetes Family History: FHx of [place] - Social History Occupation: Employed Full-time Lives: With Family Alcohol Use: Occasionally Alcohol Amount: twice a week Substance Use Type: None Smoking Status (MU): Heavy Every Day Tobacco Smoker Type: Cigarettes Amount Used/How Often: 1 ppd Length of Time of Smoking/Using Tobacco: since age 20 When Did the Patient Quit Smoking/Using Tobacco: 4 years - Immunization History Most Recent Influenza Vaccination: [id number] Most Recent Tetanus Shot: unknown Review of Systems All Other Systems Reviewed And Are Negative: Yes Constitutional: Positive: Fatigue. Negative: Fever, Chills Skin: Positive: Negative Eyes: Positive: Negative ENT: Positive: Negative Respiratory: Positive: Cough Cardiovascular: Positive: Negative Gastrointestinal: Positive: Negative. Negative: Vomiting, Nausea Genitourinary: Positive: Dysuria, Hematuria - micorscopic. Negative: Frequency , Urgency Motor: Positive: Negative Neurovascular: Positive: Negative Musculoskeletal: Positive: Myalgia Neurological: Positive: Negative Psychological: Positive: Negative Is Patient Immunocompromised?: No Physical Exam Triage Information Reviewed: Yes Appearance: Ill-Appearing - looks fatigued., Pain Distress - moderate Vital Signs: Initial Vital Signs Temp 97.9 F 05/30/19 07:25 Pulse 97 05/30/19 07:25 Resp 18 05/30/19 07:25 BP 146/81 05/30/19 07:25 Pulse Ox 98 05/30/19 07:25 ENT: Positive: Pharynx normal Neck: Positive: Supple, Nontender, No Lymphadenopathy Respiratory: Positive: Lungs clear, Normal breath sounds Cardiovascular: Positive: RRR, No Murmur Abdomen Description: Positive: Nontender, Soft. Negative: CVA Tenderness (R), CVA Tenderness (L), Distended, Guarding Musculoskeletal Exam: Other - Normal gait, no CV angle tenderness, no pain with SLR. Neurological Exam: Normal Psychological Exam: Normal, Other - mildly anxious Skin Exam: Normal Diagnostics - Laboratory Lab Results: UA with red blood cells - Radiology No standard instances Radiology Interpretation Completed By: Radiologist - Patient Name: HELGA FERRARA Medical Record#: [id number] Ordering Physician: Carissa Patino MD Acct.#: [id number] : Age: 53 Sex: F Location: [facility] Exam Date: 05/30/19805 ADM Status: REG ER Order Information: CT ABD/PEL W/O Accession Number: [id number] CPT: 85232 CLINICAL HISTORY: dysuria and left flank pain x 12 hours COMPARISON: February 26, 2014 TECHNIQUE: Multiple contiguous axial CT scans were obtained of the abdomen and pelvis, without intravenous contrast enhancement. Coronal and sagittal multiplanar reformations are submitted for review. Oral contrast was not administered. FINDINGS: Evaluation is limited due to the lack of intravenous contrast. This limits evaluation of the solid organs and vasculature. LUNG BASES: The lung bases are clear. LIVER: The liver measures 21 cm in long axis. BILE DUCTS: There is no intrahepatic or extrahepatic biliary dilatation. GALLBLADDER: The gallbladder is normal, without pericholecystic inflammatory change. PANCREAS: The pancreas is normal, without mass or ductal dilatation. SPLEEN: Normal in size and appearance. UPPER GI TRACT : Evaluation of the gastrointestinal tract is limited by incomplete gastric distention. The upper GI tract is unremarkable. SMALL BOWEL AND MESENTERY: The small bowel is normal in contour, course, and caliber. There is no obstruction or dilatation. COLON: There are scattered diverticula of the distal colon. ADRENALS: Normal bilaterally. KIDNEYS: The kidneys are normal in shape, size, contour, and axis. There is no hydronephrosis or nephrolithiasis. BLADDER: The bladder is collapsed and is not well evaluated. PELVIC ORGANS: The pelvic organs are not visualized. AORTA: The aorta is normal. IVC: Unremarkable LYMPH NODES: There is no lymphadenopathy by size criteria. ABDOMINAL WALL: There is no evidence for abdominal wall hernia. BONES AND SOFT TISSUES: There are mild diffuse degenerative changes. OTHER: None IMPRESSION: NO HYDRONEPHROSIS OR NEPHROLITHIASIS. SCATTERED DIVERTICULA OF THE DISTAL COLON. HEPATOMEGALY. This report is only to be considered final once signed by the Provider(s) as displayed in the "<Electronically Signed by >" field (s). Absence of a signature indicates the report is in a draft status and still needs to be finalized. In the event this document was created by someone other than the signing Provider, the individual initiating the document will be listed in the "Entered by:" or "Dictated by:" bowie. 1 of 2 Re-Evaluation - Re-Evaluation First Eval Re-Evaluation Time: 08:45 - pain improving with toradol Change: Improved Back Pain Course/Dx - Course Course Of Treatment: Toradol given with relief of pain. Advised heat, stretching and follow up of microhematuria with Dr. Anderson. Pending evaluation with GI tomorrow regarding hepatomegaly. - Differential Dx/Diagnosis Differential Diagnosis/HQI/PQRI: Herniated Disc, Renal Colic, Strain, Sprain Provider Diagnosis: Left sided sciatica Discharge ED - Sign-Out/Discharge Documenting (check all that apply): Patient Departure All imaging exams completed and their final reports reviewed: Yes - Discharge Plan Condition: Stable Disposition: HOME Patient Education Materials: Sciatica (ED), Lower Back Exercises (ED) Referrals: Mehreen Anderson MD [Primary Care Provider] - Additional Instructions: Please arrange a follow up visit with Dr. Anderson to re-assess blood in the urine and decide if more evaluation is needed. You have GI follow up arranged to follow up on the liver enlargement. Use ibuprofen with caution for pain. You were given toradol here; and you could take a dose of ibuprofen at about 2 pm today. Use with caution, and use minimally due to your history of high blood pressure. - Billing Disposition and Condition Condition: STABLE Disposition: Home
== END 2019-05-30 09:12 | disposition home or self-care (01) ==
LOC: UCCORT 07:14
DX: M54.32 Sciatica, left side (principal); R30.0 Dysuria; R53.83 Other fatigue; R16.0 Hepatomegaly, not elsewhere classified; I10 Essential (primary) hypertension; E11.9 Type 2 diabetes mellitus without complications; F41.9 Anxiety disorder, unspecified; F17.210 Nicotine dependence, cigarettes, uncomplicated; Z79.899 Other long term (current) drug therapy; Z87.442 Personal history of urinary calculi; Z88.6 Allergy status to analgesic agent; Z88.8 Allergy status to other drugs, medicaments and biological substances; Z88.5 Allergy status to narcotic agent; K57.30 Diverticulosis of large intestine without perforation or abscess without bleeding
CPT/HCPCS: 74176; 81003; 96372; 99211; G0463; J1885

== ENCOUNTER 2019-08-15 05:44 | Day surgery (SDC) | payer OTHER ==
[~2019-08-15 05:44] MED LIST: Buffered Lidocaine 1% SYRIN* 1 ML/SYRINGE INTRADERM ONE
[2019-08-15] MEDS ORDERED: Famotidine IV* 10 MG/ML 2 ML (20 mg) IV ONE (06:00)
[2019-08-15] MEDS ORDERED: Lactated Ringers 1000 ML Bag* 1,000 ML IV SCH (06:00)
[2019-08-15] MEDS ORDERED: ceFAZolin 2 GM PREMIX in ORs 2 GM/50 ML BAG ONE (06:14)
[2019-08-15] MEDS ORDERED: Famotidine IV* 10 MG/ML 2 ML (20 mg) ONE (06:14)
[2019-08-15] MEDS ORDERED: Propofol* 500 MG/50 ML BTL ONE (06:59)
[2019-08-15] MEDS ORDERED: Lidocaine 2% PF * 5 ML VIAL ONE (06:59)
[2019-08-15] MEDS ORDERED: KETAMINE HCL* 50 MG/ML 10 ML VIAL ONE (07:00)
[2019-08-15] MEDS ORDERED: Lidocaine 2% PF* 10 ML AMP ONE (07:10)
[2019-08-15] MEDS ORDERED: Bupivacaine 0.5%* 50 ML MDV VIAL ONE (07:10)
[2019-08-15 08:31] VITALS: BP 138/90
--- NOTE | 2019-08-16 03:54 | OP ---
DATE OF OPERATION: 08/15/19 - [facility] DATE OF : 69 ATTENDING SURGEON: Jason Garcia MD ELECTRIC SHAVER MECHANIC: Sheldon Ross PA-C PRE-OP DIAGNOSIS: Soft tissue mass, left foot. POST-OP DIAGNOSIS: Cyst. OPERATIVE PROCEDURE: Excision of cyst, left foot. DESCRIPTION OF PROCEDURE: The patient was taken to the operating room where a longitudinal 2 cm incision was made over the dorsal medial midfoot. Soft tissue mass was isolated in the soft tissue and excised without opening the soft tissue mass. This was sent to Pathology. There was a nerve coursing plantar to the mass, but not involving the mass. We irrigated thoroughly, closing with 3-0 Monocryl, interrupted nylon, and a compression dressing was applied. [id number]/[id number] #: [id number] MTDD
== END 2019-08-15 08:30 | disposition home or self-care (01) ==
LOC: OR 05:44
PROVIDERS: ATTEND Orthopaedic Surgery
DX: D21.22 Benign neoplasm of connective and other soft tissue of left lower limb, including hip (principal); I10 Essential (primary) hypertension; E78.5 Hyperlipidemia, unspecified; E11.9 Type 2 diabetes mellitus without complications; F17.210 Nicotine dependence, cigarettes, uncomplicated
CPT/HCPCS: 88305; J0690; J2001; J2704; J3490